=== PATIENT | male | born 1975 | race African-American/Black ===

== ENCOUNTER 2017-09-25 20:01 | Emergency (ER) | payer SELFPAY ==
[~2017-09-25] VITALS: Ht 175.3 cm; Wt 61.2 kg
[2017-09-25 20:23] VITALS: Ht 175.3 cm; Wt 61.2 kg
[2017-09-25 21:10] LABS: BASOPHIL % 0.4 % (0-2); PLATELET COUNT 289 x10^3mcL (130-400); RED CELL DISTRIBUTION WIDTH 12.4 % (11.5-14.5)
[2017-09-25 21:14] LABS: CALCIUM 9.5 mg/dL (8.5-10.1); CARBON DIOXIDE 28.3 mmol/L (21-32); CHLORIDE SERUM 100 mmol/L (98-107); CREATININE SERUM 1.1 mg/dL (0.7-1.3); GFR1 > 60 mL/min; GLUCOSE SERUM 262 mg/dL (74-106); POTASSIUM SERUM 3.5 mmol/L (3.5-5.1); SODIUM SERUM 138 mmol/L (136-145)
[2017-09-25 21:19] LABS: ALKALINE PHOSPHATASE 39 U/L (46-116); ALT/SGPT 24 U/L (16-63); AST/SGOT 11 U/L (15-37); BILIRUBIN TOTAL 0.62 mg/dL (0.20-1.00); TOTAL PROTEIN, SERUM 7.4 g/dL (6.4-8.2)
[2017-09-26 00:31] LABS: SOURCE FLUID KNEE ASPIRATION
[2017-09-26 00:32] LABS: APPEARANCE FLUID HAZY; COLOR FLUID YELLOW; RBC FLUID 198 /cumm; SITE FLUID RT KNEE; WBC FLUID 2668 /cumm
[2017-09-26 00:33] LABS: LYMPHOCYTE FLUID 5 %
[2017-09-26 01:13] VITALS: BP 135/77
== END 2017-09-26 01:13 | disposition home or self-care (01) ==
LOC: ED 20:01
PROVIDERS: Emergency Medicine
DX: M25.461 Effusion, right knee (principal); M06.4 Inflammatory polyarthropathy
CPT/HCPCS: 36415; J1885; J2001; Q0092